=== PATIENT | male | born 1995 | race Caucasian/White ===

== ENCOUNTER 2021-04-17 16:33 | Emergency (ER) | payer BC | END 2021-04-17 18:15 | disposition home or self-care (01) | LOC: ER1 16:33 | DX: S01.21XA Laceration without foreign body of nose, initial encounter (principal); Z23 Encounter for immunization; F17.200 Nicotine dependence, unspecified, uncomplicated; W45.8XXA Other foreign body or object entering through skin, initial encounter | CPT/HCPCS: 12011; 90471; 90715; 99282 ==